=== PATIENT | male | born 1970 | race Caucasian/White ===

== ENCOUNTER → 2021-02-14 | Outpatient (CLI) | payer OTHER ==
--- NOTE | ~2021-02-14 | PF ---
[address] [address] PULMONARY FUNCTION REPORT Name: ABELPIERRE S Room: [facility]#: [id number] Admission: 02/14/21 Attend Phys: Klever Jimenezcrissdoris Discharge: Date of : 74 Report #: [id number] THIS REPORT FOR: cc: [facility] - Clinic physician unknown [facility] - Clinic physician unknown David Simpson MD ~ DATE OF VISIT: 02/14/2021 PULMONARY FUNCTION TEST The FEV1/FVC ratio is normal at 76%. The FVC is decreased to 76% and FEV1 is decreased to 73%. The FEF 25-75 is decreased to 67%. After the administration of a bronchodilator, there is no significant increase in any of these values. The patient's post-bronchodilator FEV1 is 3.15 liters. Only a spirometry was performed. IMPRESSION: There is a moderate restrictive pattern on spirometry. This could be secondary to underlying restriction or obstruction or neuromuscular weakness or poor effort. If further evaluation is clinically indicated, then full pulmonary function test with lung volumes can be obtained. By: [id number] Simpson MD /nt
== END ==
LOC: M.PUL 12:54
PROVIDERS: ATTEND Chiropractor
DX: J44.0 Chronic obstructive pulmonary disease with (acute) lower respiratory infection (principal)